=== PATIENT | male | born 1995 | race Caucasian/White ===

== ENCOUNTER 2017-10-02 18:34 | Emergency (ER) | payer OTHER ==
[2017-10-02] MEDS ORDERED: HYDROmorphONE/DILAUDID 1 MG/ML INJ IVP ONE (19:20)
[2017-10-02 19:27] VITALS: PULSE 90; RESP 18; O2SAT 99
--- NOTE | 2017-10-02 19:39 | EDPHY ---
H & P Time Seen by Provider: 10/02/17 18:37 Departure - Departure Referrals: Patient,NotPresent [Primary Care Provider] - As per Instructions
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
[2017-10-02] MEDS ORDERED: HYDROCOD/APAP 5/325 PREPACK#6 BTL TAKEHOME ONE (20:50)
[2017-10-02 21:57] VITALS: BP 138/86; TEMP 98.6
== END 2017-10-02 21:58 | disposition home or self-care (01) ==
DX: S42.022A Displaced fracture of shaft of left clavicle, initial encounter for closed fracture (principal); S52.124A Nondisplaced fracture of head of right radius, initial encounter for closed fracture; V03.10XA Pedestrian on foot injured in collision with car, pick-up truck or van in traffic accident, initial encounter; Y99.8 Other external cause status; Y93.01 Activity, walking, marching and hiking
CPT/HCPCS: 96374; A4565; J1170